=== PATIENT | female | born 1995 | race Caucasian/White ===

== ENCOUNTER 2017-09-28 21:32 | Emergency (ER) | payer MEDICAID ==
[2017-09-28 22:22] LABS: APPEARANCE CLEAR (CLEAR); COLOR DK YELLOW (YELLOW); GLUCOSE NEGATIVE (NEGATIVE); KETONE LARGE mg/dL (NEGATIVE); NITRITE NEGATIVE (NEGATIVE); PROTEIN TRACE mg/dL (NEGATIVE); SPECIFIC GRAVITY 1.005 (1.005-1.020)
[2017-09-28 22:23] LABS: BILIRUBIN 2+ (NEGATIVE)
[2017-09-28 22:25] LABS: RED CELLS - URINE 0-5 /hpf (0-5); WHITE CELLS - URINE 0-5 /hpf (0-5)
[2017-09-28 22:26] LABS: BACTERIA FEW /hpf (NONE SEEN); EPITHELIAL CELLS 0-5 /hpf (0-5); MUCUS <1+ /lpf (NONE SEEN)
[2017-09-28 22:40] LABS: BASOPHILS 0.2 % (0-2); HEMATOCRIT 38.2 % (36.0-48.0); IMMATURE GRANULOCYTES 0.2 % (0-5); MCV 94.1 fL (80.0-100.0); MEAN PLATELET VOLUME 10.7 fL (7.4-10.4); MONOCYTES 6.1 % (2-11); NEUTROPHILS 85.5 % (40-80); PLATELET COUNT 190 10x3/uL (130-400); RBC 4.06 10x6/uL (4.00-5.40); RDW 13.1 % (11.5-14.5); WBC 10.7 10x3/uL (4.8-10.8)
[2017-09-28 22:56] LABS: ALBUMIN 2.7 g/dL (3.4-5.0); ALKALINE PHOSPHATASE 71 U/L (46-116); BILIRUBIN - TOTAL 0.47 mg/dL (0.2-1.3); CALC OSMOLALITY 273 mosm/kg (275-300); CALCIUM 8.4 mg/dL (8.5-10.1); CARBON DIOXIDE 22.7 mmol/L (21.0-32.0); CHLORIDE - SERUM 104 mmol/L (98-107); CREATININE - SERUM 0.4 mg/dL (0.6-1.3); GLUCOSE 106 mg/dL (74-106); POTASSIUM - SERUM 3.2 mmol/L (3.5-5.1); PROTEIN - SERUM 6.4 g/dL (6.4-8.2); SODIUM 138 mmol/L (136-145); UREA NITROGEN 8 mg/dL (7-18); eGFR NON AFRICAN AMERICAN > 90 mL/min (90-120)
[2017-09-28 23:01] LABS: ALT (SGPT) 18 U/L (10-68)
== END 2017-09-29 00:43 | disposition home or self-care (01) ==
LOC: D.ER 21:32
PROVIDERS: Family Medicine
DX: O21.2 Late vomiting of pregnancy (principal); Z3A.23 23 weeks gestation of pregnancy

== ENCOUNTER 2017-10-17 22:12 | Emergency (ER) | payer MEDICAID ==
[~2017-10-17] VITALS: Ht 160 cm; Wt 73.2 kg
[2017-10-17 22:40] VITALS: Ht 160 cm; Wt 73.2 kg
[2017-10-18] MEDS ORDERED: FEXMID7.5 MG PO (00:34)
[2017-10-18 00:43] VITALS: BP 130/64
== END 2017-10-18 00:47 | disposition home or self-care (01) ==
LOC: D.ER 22:12
DX: O26.892 Other specified pregnancy related conditions, second trimester (principal); Z3A.26 26 weeks gestation of pregnancy; M25.511 Pain in right shoulder; S46.911A Strain of unspecified muscle, fascia and tendon at shoulder and upper arm level, right arm, initial encounter; X50.9XXA Other and unspecified overexertion or strenuous movements or postures, initial encounter; Y93.89 Activity, other specified; Y92.89 Other specified places as the place of occurrence of the external cause; F17.200 Nicotine dependence, unspecified, uncomplicated; M75.91 Shoulder lesion, unspecified, right shoulder

== ENCOUNTER → 2017-11-01 13:45 | Outpatient (CLI) | payer MEDICAID ==
[2017-10-17 22:40] VITALS: BMI 28.5
[~2017-11-01 13:45] MED LIST: FEXMID7.5 MG PO
[2017-11-01 15:19] LABS: APPEARANCE HAZY (CLEAR); BILIRUBIN NEGATIVE (NEGATIVE); COLOR YELLOW (YELLOW); GLUCOSE NEGATIVE (NEGATIVE); KETONE NEGATIVE (NEGATIVE); NITRITE NEGATIVE (NEGATIVE); PROTEIN NEGATIVE (NEGATIVE); UROBILINOGEN NORMAL (NORMAL)
== END | disposition home or self-care (01) ==
LOC: D.LDO 13:45
PROVIDERS: Obstetrics & Gynecology
DX: O26.893 Other specified pregnancy related conditions, third trimester (principal); Z3A.28 28 weeks gestation of pregnancy; R10.31 Right lower quadrant pain

== ENCOUNTER 2017-12-23 23:41 | Outpatient (CLI) | payer MEDICAID ==
[2017-10-17 22:40] VITALS: BMI 28.5
[2017-12-24 00:30] LABS: APPEARANCE CLEAR (CLEAR); BILIRUBIN NEGATIVE (NEGATIVE); COLOR YELLOW (YELLOW); GLUCOSE NEGATIVE (NEGATIVE); KETONE NEGATIVE (NEGATIVE); NITRITE NEGATIVE (NEGATIVE); PROTEIN NEGATIVE (NEGATIVE); SPECIFIC GRAVITY 1.015 (1.005-1.020)
[2018-01-05 16:55] VITALS: BMI 32.1
== END 2017-12-24 01:11 | disposition home or self-care (01) ==
LOC: D.LDO 23:41 → D.LD 23:42 → D.LDO 12-24 01:11
PROVIDERS: Obstetrics & Gynecology
DX: O26.893 Other specified pregnancy related conditions, third trimester (principal); Z3A.36 36 weeks gestation of pregnancy

== ENCOUNTER 2018-01-05 15:54 | Inpatient (IN) | payer MEDICAID ==
[2018-01-05] VITALS (11 sets, daily range): BP systolic 107–132; BP diastolic 54–75; Ht 160 cm; Wt 82.1 kg
[~2018-01-05] VITALS: Ht 160 cm; Wt 82.1 kg
--- NOTE | ~2018-01-05 | OP ---
PATIENT NAME: MARINA SCHULZ MEDICAL RECORD: [id number] :96 LOCATION:[id number] ADMISSION DATE:01/05/18 SURGEON: SACHIN ROSE MD DATE OF OPERATION: 01/05/2018 PREOPERATIVE DIAGNOSES: 1. Labor at term. 2. Prior section. 3. Undesired fertility. POSTOPERATIVE DIAGNOSES: 1. Labor at term. 2. Prior section. 3. Undesired fertility. PROCEDURES: 1. Repeat low transverse section. 2. Bilateral salpingectomy. SURGEON: Sachin Rose MD PETROGRAPHY TEACHER: Dr. MICK Sy. ANESTHESIA: Spinal. FINDINGS: Viable female , vertex presentation, Apgars were 9 and 9, weight 7 pounds 5 ounces. Unremarkable uterus, tubes, and ovaries. [id number] bladder adhesions to the lower uterine segment. SPECIMENS REMOVED: 1. Placenta. 2. Bilateral tubes. SPECIMEN DISPOSITION: 1. Discarded. 2. Pathology. ESTIMATED BLOOD LOSS: 750 cc. FLUIDS: 1300 cc lactated Ringer's. URINE OUTPUT: 450 cc of clear urine. COMPLICATIONS: None. DRAINS: Wood to gravity. INDICATIONS: The patient is a 22-year-old parous female with prior section who presents to labor and delivery at 38 weeks gestation with painful regular contractions. The patient is assessed and felt to be in early labor and consented for repeat section. The patient also has undesired fertility. Risks, benefits as well as the possibility of failure of the tubal ligation have been discussed. The patient is aware of alternatives. DESCRIPTION OF PROCEDURE: After informed consent was assured, the patient was OPERATIVE REPORT [id number] MARINA SCHULZ taken to the operating room where anesthetic was obtained without difficulty. The patient is now prepped and draped in the usual sterile fashion. After assessment of the anesthetic, an incision was made over the old scar, carried down to the underlying layer of the fascia, which was opened in the midline and extended laterally. The fascia was now dissected free of the rectus bellies superiorly and inferiorly. Rectus bellies were now and the peritoneum entered. Peritoneal opening was extended and DeLee all-purpose retractor inserted. Low transverse hysterotomy was performed after developing a bladder flap sharply. was delivered onto the abdomen atraumatically and delayed cord clamping is performed. Infant is now passed to the attendance and the placenta delivered via Crede maneuver. Uterus was exteriorized, cleared of all clot and debris and closed in a running locked fashion. After closure of the uterus, attention was directed to the left tube, which was elevated with Canon clamps and a window was made in the mesosalpinx. Ligatures were placed over the large vessels and the tube was now removed with Bovie cautery. This was repeated on the contralateral side. Again, windows were developed in the mesosalpinx and the pedicles are ligated. Again, the tube was removed with Bovie cautery and passed to the attendant. The uterus is inspected and found to be hemostatic and returned to the abdomen. Posterior cul-de-sac has been irrigated. Pericolic gutters are inspected. The peritoneum and rectus bellies are inspected and found to be hemostatic. The peritoneum was now reapproximated in the midline with a horizontal mattress. The fascia was now closed with looped PDS. Subcutaneous tissues inspected and subcuticular stitches applied. Sterile dressing was placed. Sponge, lap, and needle counts correct times 2 and the patient went to the recovery area in stable condition. TRANSINT:[id number] Voice Confirmation ID: [id number] DOCUMENT ID: [id number] SACHIN ROSE MD at 1700 CC: [id number] DICTATION DATE: 01/05/18 185 SOIL SPECIALIST: 01/06/18 0050 DIS IN 01/07/18 [facility] [address] [place] [address]
[2018-01-05 16:37] LABS: APPEARANCE CLEAR (CLEAR); BILIRUBIN NEGATIVE (NEGATIVE); COLOR YELLOW (YELLOW); GLUCOSE NEGATIVE (NEGATIVE); KETONE NEGATIVE (NEGATIVE); NITRITE NEGATIVE (NEGATIVE); PROTEIN NEGATIVE (NEGATIVE); UROBILINOGEN NORMAL (NORMAL)
[2018-01-05 17:39] LABS: HEMATOCRIT 36.2 % (36.0-48.0); HEMOGLOBIN 12.2 g/dL (12-16); MCH 30.7 pg (26.0-34.0); MCHC 33.7 g/dL (31.0-37.0); MCV 91.2 fL (80.0-100.0); MEAN PLATELET VOLUME 11.7 fL (7.4-10.4); RBC 3.97 10x6/uL (4.00-5.40); RDW 13.6 % (11.5-14.5); WBC 10.9 10x3/uL (4.8-10.8)
[2018-01-06 01:55] VITALS: BP 107/54
[2018-01-06 05:41] LABS: BASOPHILS 0.2 % (0-2); EOSINOPHILS 1.7 % (0-7); HEMATOCRIT 33.8 % (36.0-48.0); HEMOGLOBIN 11.2 g/dL (12-16); IMMATURE GRANULOCYTES 0.3 % (0-5); LYMPHOCYTES 16.5 % (15-50); MCHC 33.1 g/dL (31.0-37.0); MCV 90.6 fL (80.0-100.0); MEAN PLATELET VOLUME 11.1 fL (7.4-10.4); MONOCYTES 6.7 % (2-11); NEUTROPHILS 74.6 % (40-80); PLATELET COUNT 168 10x3/uL (130-400); RBC 3.73 10x6/uL (4.00-5.40); RDW 13.7 % (11.5-14.5); WBC 11.9 10x3/uL (4.8-10.8)
[2018-01-06 10:27] VITALS: BP 127/71
[2018-01-06 20:30] VITALS: BP 123/75
[2018-01-06 23:51] VITALS: BP 147/68
[2018-01-07 03:52] VITALS: BP 145/93
[2018-01-07 04:15] VITALS: BP 136/74
[2018-01-07 06:07] LABS: RAPID PLASMA REAGIN Non Reactive (Non Reactive)
[2018-01-07 08:00] VITALS: BP 127/64
[2018-01-07] MEDS ORDERED: COLACE100 MG PO (11:45)
[2018-01-07] MEDS ORDERED: PERCOCET 5-3251 TAB PO (11:46)
[2018-01-07] MEDS ORDERED: MOTRIN600 MG PO (11:49)
== END 2018-01-07 12:50 | disposition home or self-care (01) | DRG 766 ==
LOC: D.LDO 15:54 → D.LABREF 15:54 → D.LD 16:47
PROVIDERS: Obstetrics & Gynecology
PROC: 0UB70ZZ Excision of Bilateral Fallopian Tubes, Open Approach (ICD-10-PCS; 2018-01-05)
PROC: 10D00Z1 Extraction of Products of Conception, Low, Open Approach (ICD-10-PCS; principal; 2018-01-05 17:20)
DX: O65.5 Obstructed labor due to abnormality of maternal pelvic organs (principal); O34.211 Maternal care for low transverse scar from previous cesarean delivery; Z3A.38 38 weeks gestation of pregnancy; Z37.0 Single live birth; Z30.2 Encounter for sterilization; Z30.09 Encounter for other general counseling and advice on contraception; O99.334 Smoking (tobacco) complicating childbirth